=== PATIENT | female | born 1930 | race Caucasian/White ===

== ENCOUNTER → 2017-07-14 | Outpatient (REF) ==
[~2017-07-14] MED LIST: ASPIRIN 81M81 MG/TA2 PO; ATOXIMETIN-B1 CAP PO; CALCIUM CITRAT200 MG PO; CARDI-OMEGA1000 MG PO; FLAX SEED OIL1000 MG PO; HYDROCODONE/APAP; NATURAL E400 IU PO; PRILOSEC 20MG20 MG PO; VITAMIN D5000 IU PO
== END ==
LOC: ZLAB.WCH 18:26
DX: Z01.89 Encounter for other specified special examinations (principal)

== ENCOUNTER → 2017-11-01 | Outpatient (REF) ==
[2017-11-01 19:18] LABS: THYROID STIMULATING HORMONE 1.28 uIU/mL (0.465-4.680)
== END ==
LOC: ZLAB.WCH 18:22
PROVIDERS: Nurse Practitioner Family
DX: Z01.89 Encounter for other specified special examinations (principal)

== ENCOUNTER 2017-11-09 11:11 | Emergency (ER) | payer MEDICARE, OTHER ==
[~2017-11-09] VITALS: Ht 157.5 cm; Wt 80.5 kg
[2017-11-09 11:23] VITALS: TEMP 97.5
[2017-11-09 12:01] LABS: BASO # 0.1 (0.0-0.2); BASO % 1.4 % (0.0-2.0); EOS # 0.1 (0.0-0.7); EOS % 1.9 % (0-4.0); GRAN # 4.2 (1.4-6.5); GRAN % 56.1 % (42.2-75.2); HEMATOCRIT 40.6 % (37.0-47.0); HEMOGLOBIN 13.7 g/dl (12.5-16.0); LYMPH # 2.2 (1.2-3.4); LYMPH % 30.4 % (20.0-51.0); MEAN CELL VOLUME 93 fl (80.0-100.0); MEAN CORPUSCULAR HEMOGLOBIN 31 pg (27.0-31.0); MEAN CORPUSCULAR HGB CONC 34 g/dl (33.0-37.0); MEAN PLATELET VOLUME 9.4 fl (7.4-10.4); MONO # 0.7 (0.1-0.6); MONO % 9.9 % (1.7-9.3); PLATELET COUNT 321 K/mm3 (130-400); RED BLOOD COUNT 4.36 M/mm3 (4.10-5.30)
[2017-11-09 12:11] LABS: ALBUMIN 4.1 gm/dL (3.5-5.0); BILIRUBIN,TOTAL 0.7 mg/dL (0.0-1.0); CALCIUM 9.5 mg/dL (8.4-10.2); CREATININE, serum 0.58 mg/dL (0.52-1.25); TOTAL PROTEIN 7.1 gm/dL (6.4-8.2)
[2017-11-09 15:28] LABS: COLLECTION METHOD CLEAN CATCH
[2017-11-09 15:40] LABS: PH 8 (5-8); SQUAMOUS EPITHELIAL 0-2 /hpf; URINE APPEARANCE Clear; URINE BACTERIA None Seen /hpf; URINE BILIRUBIN Negative (NEGATIVE); URINE BLOOD Negative (NEGATIVE); URINE COLOR Straw; URINE GLUCOSE Negative (NEGATIVE); URINE KETONE Negative (NEGATIVE); URINE LEUKOCYTE ESTERASE 1+ (NEGATIVE); URINE NITRATE Negative (NEGATIVE); URINE PROTEIN(semi-quant) Negative (NEGATIVE); URINE RBC 0-2 /hpf; URINE UROBILINOGEN Negative (NEGATIVE)
[2017-11-09 16:26] VITALS: BP 165/88; PULSE 71
[2017-11-09] MEDS ORDERED: DIFLUCAN 100MG100 MG PO (16:45)
== END 2017-11-09 16:45 | disposition home or self-care (01) ==
LOC: COL.ER 11:11
PROVIDERS: Emergency Medicine
DX: I70.212 Atherosclerosis of native arteries of extremities with intermittent claudication, left leg (principal)

== ENCOUNTER 2017-11-16 08:41 | Observation (INO) | payer MEDICARE, OTHER ==
[2017-11-16] VITALS (18 sets, daily range): BP systolic 118–179; BP diastolic 60–90; PULSE 59–77; TEMP 97.9
[~2017-11-16] VITALS: Ht 157.6 cm; Wt 78.0 kg
[~2017-11-16 08:41] MED LIST changes: -ATOXIMETIN-B1 CAP PO; -CALCIUM CITRAT200 MG PO; +CITRACAL + D CA1 TAB PO; +DIFLUCAN 100MG100 MG PO; +FLAX OIL1000 MG PO; -FLAX SEED OIL1000 MG PO; +MULTI VITAMINS1 TAB PO; -VITAMIN D5000 IU PO; +VITAMIND3 5000 PO
[2017-11-16 09:31] LABS: HEMATOCRIT 42.2 % (37.0-47.0); HEMOGLOBIN 14.6 g/dl (12.5-16.0); MEAN CELL VOLUME 93 fl (80.0-100.0); MEAN CORPUSCULAR HEMOGLOBIN 32 pg (27.0-31.0); MEAN CORPUSCULAR HGB CONC 35 g/dl (33.0-37.0); MEAN PLATELET VOLUME 9.5 fl (7.4-10.4); PLATELET COUNT 307 K/mm3 (130-400); RED BLOOD COUNT 4.55 M/mm3 (4.10-5.30); REDCELL DISTRIBUTION WIDTH-CV 12.1 % (11.5-14.5)
[2017-11-16 09:34] LABS: PROTHROMBIN TIME 11.2 SECONDS (9.7-12.8)
[2017-11-16 09:49] LABS: CREATININE, serum 0.63 mg/dL (0.52-1.25)
[2017-11-17 01:04] VITALS: BP 138/53; PULSE 67; TEMP 98.2
[2017-11-17 04:09] VITALS: BP 136/59; PULSE 71; TEMP 98.4
[2017-11-17 04:09] LABS: COLLECTION METHOD CLEAN CATCH
[2017-11-17 04:18] LABS: MUCOUS Present /lpf; PH 6 (5-8); URINE APPEARANCE Clear; URINE BACTERIA Occasional /hpf; URINE BILIRUBIN Negative (NEGATIVE); URINE BLOOD Negative (NEGATIVE); URINE COLOR Yellow; URINE GLUCOSE Negative (NEGATIVE); URINE KETONE Trace (NEGATIVE); URINE LEUKOCYTE ESTERASE 2+ (NEGATIVE); URINE NITRATE Negative (NEGATIVE); URINE PROTEIN(semi-quant) Negative (NEGATIVE); URINE UROBILINOGEN Negative (NEGATIVE)
[2017-11-17 08:01] VITALS: BP 146/62; PULSE 56; TEMP 97.8
[2017-11-17 08:32] LABS: BASO # 0.1 (0.0-0.2); BASO % 0.6 % (0.0-2.0); EOS # 0.1 (0.0-0.7); EOS % 0.8 % (0-4.0); GRAN % 66.4 % (42.2-75.2); HEMATOCRIT 38.9 % (37.0-47.0); HEMOGLOBIN 12.9 g/dl (12.5-16.0); LYMPH # 1.8 (1.2-3.4); LYMPH % 19.8 % (20.0-51.0); MEAN CELL VOLUME 95 fl (80.0-100.0); MEAN CORPUSCULAR HEMOGLOBIN 31 pg (27.0-31.0); MEAN CORPUSCULAR HGB CONC 33 g/dl (33.0-37.0); MEAN PLATELET VOLUME 9.4 fl (7.4-10.4); MONO # 1.1 (0.1-0.6); MONO % 12.1 % (1.7-9.3); PLATELET COUNT 268 K/mm3 (130-400); RED BLOOD COUNT 4.11 M/mm3 (4.10-5.30); REDCELL DISTRIBUTION WIDTH-CV 12.1 % (11.5-14.5)
[2017-11-17 08:42] VITALS: BP 146/62; PULSE 56; TEMP 97.8
[2017-11-17 08:43] LABS: CALCIUM 8.3 mg/dL (8.4-10.2); CREATININE, serum 0.75 mg/dL (0.52-1.25); MAGNESIUM 1.8 mg/dL (1.6-2.3); PHOSPHOROUS 3.1 mg/dL (2.5-4.5); POTASSIUM 4.1 mmol/L (3.4-5.0)
[2017-11-17] MEDS ORDERED: PLAVIX 75MG TAB75 MG PO (09:03)
[2017-11-18] MEDS ORDERED: CEPHALEXIN500 M1 PO (16:59)
== END 2017-11-17 11:52 | disposition home or self-care (01) ==
LOC: COL.CAR 08:41 → MEDICAL 18:40 → COL.CAR 11-17 03:08 → MEDICAL 11-17 03:09
PROVIDERS: Internal Medicine; Radiology Diagnostic Radiology
DX: I77.1 Stricture of artery (principal); I70.92 Chronic total occlusion of artery of the extremities; I10 Essential (primary) hypertension; Z87.891 Personal history of nicotine dependence; Z79.82 Long term (current) use of aspirin
CPT/HCPCS: OP; G0378; J1644; J2250; J2405; J2704; J2997; J3010; J7030; J7120; Q9967

== ENCOUNTER 2017-11-18 14:28 | Emergency (ER) | payer MEDICARE, OTHER ==
[~2017-11-18] VITALS: Ht 157.5 cm; Wt 79.5 kg
[~2017-11-18 14:28] MED LIST changes: +PLAVIX 75MG TAB75 MG PO
[2017-11-18 14:35] VITALS: TEMP 98.1
[2017-11-18 16:21] LABS: BASO # 0.1 (0.0-0.2); BASO % 0.8 % (0.0-2.0); EOS # 0.2 (0.0-0.7); EOS % 2.4 % (0-4.0); GRAN # 4.8 (1.4-6.5); GRAN % 53.5 % (42.2-75.2); HEMATOCRIT 38.2 % (37.0-47.0); HEMOGLOBIN 12.9 g/dl (12.5-16.0); LYMPH # 2.5 (1.2-3.4); LYMPH % 28.1 % (20.0-51.0); MEAN CELL VOLUME 93 fl (80.0-100.0); MEAN CORPUSCULAR HEMOGLOBIN 32 pg (27.0-31.0); MEAN CORPUSCULAR HGB CONC 34 g/dl (33.0-37.0); MEAN PLATELET VOLUME 9.5 fl (7.4-10.4); MONO # 1.3 (0.1-0.6); PLATELET COUNT 226 K/mm3 (130-400); RED BLOOD COUNT 4.09 M/mm3 (4.10-5.30)
[2017-11-18 16:46] LABS: CALCIUM 9.2 mg/dL (8.4-10.2); CREATININE, serum 0.72 mg/dL (0.52-1.25); POTASSIUM 3.8 mmol/L (3.4-5.0)
[2017-11-18] MEDS ORDERED: CEPHALEXIN500 M1 PO (16:59)
[2017-11-18 17:05] VITALS: BP 175/82; PULSE 67
== END 2017-11-18 17:20 | disposition home or self-care (01) ==
LOC: COL.ER 14:28
PROVIDERS: Emergency Medicine
DX: L03.116 Cellulitis of left lower limb (principal); I73.9 Peripheral vascular disease, unspecified; Z95.820 Peripheral vascular angioplasty status with implants and grafts; Z79.82 Long term (current) use of aspirin; Z79.02 Long term (current) use of antithrombotics/antiplatelets

== ENCOUNTER → 2017-12-01 | Outpatient (CLI) | payer MEDICARE, OTHER ==
[~2017-12-01] MED LIST changes: +CEPHALEXIN500 M1 PO
== END ==
LOC: COL.VAS 09:13
DX: I37.1 Nonrheumatic pulmonary valve insufficiency (principal); R06.02 Shortness of breath

== ENCOUNTER → 2018-02-13 | Outpatient (CLI) | payer MEDICARE, OTHER | LOC: COL.VAS 12:07 | DX: I08.1 Rheumatic disorders of both mitral and tricuspid valves (principal) ==

== ENCOUNTER → 2018-03-03 | Outpatient (REF) | LOC: ZLAB.WCH 16:42 | DX: Z01.89 Encounter for other specified special examinations (principal) ==

== ENCOUNTER → 2018-03-10 | Outpatient (CLI) | payer MEDICARE, OTHER | LOC: COL.PUL 10:29 | DX: J43.1 Panlobular emphysema (principal); Z87.891 Personal history of nicotine dependence ==

== ENCOUNTER → 2018-05-18 | Outpatient (REF) ==
[~2018-05-18] MED LIST changes: +BETAPACE 80MG80 MG PO; +ELIQUIS 5MG PO; +TOPROL XL 25MG25 MG PO
== END ==
LOC: ZLAB.WCH 14:33
DX: Z01.89 Encounter for other specified special examinations (principal)

== ENCOUNTER → 2018-10-03 | Outpatient (CLI) | payer MEDICARE, OTHER | LOC: COL.VAS 10:48 | DX: I73.9 Peripheral vascular disease, unspecified (principal); I48.2 Chronic atrial fibrillation; Z95.820 Peripheral vascular angioplasty status with implants and grafts ==

== ENCOUNTER 2019-05-30 11:09 | Observation (INO) | payer MEDICARE, OTHER ==
[~2019-05-30] VITALS: Ht 157.5 cm; Wt 79.2 kg
[2019-05-30 11:32] LABS: BASO # 0.1 (0.0-0.2); BASO % 0.8 % (0.0-2.0); EOS # 0.2 (0.0-0.7); EOS % 2.1 % (0-4.0); GRAN # 4.1 (1.4-6.5); GRAN % 49.5 % (42.2-75.2); HEMOGLOBIN 13.6 g/dl (12.5-16.0); LYMPH # 2.8 (1.2-3.4); LYMPH % 33.3 % (20.0-51.0); MEAN CELL VOLUME 91 fl (80.0-100.0); MEAN CORPUSCULAR HEMOGLOBIN 30 pg (27.0-31.0); MEAN CORPUSCULAR HGB CONC 33 g/dl (33.0-37.0); MEAN PLATELET VOLUME 9.5 fl (7.4-10.4); MONO # 1.2 (0.1-0.6); MONO % 14.1 % (1.7-9.3); PLATELET COUNT 378 K/mm3 (130-400); RED BLOOD COUNT 4.52 M/mm3 (4.10-5.30); REDCELL DISTRIBUTION WIDTH-CV 13.2 % (11.5-14.5)
[2019-05-30 11:36] LABS: INR 1.3 (0.8-3.0); PROTHROMBIN TIME 15.3 SECONDS (9.7-12.8)
[2019-05-30 11:45] LABS: ALANINE AMINOTRANSFERASE < 6 U/L (9-52); ALKALINE PHOSPHATASE 59 U/L (50-136); ANION GAP 12 mmol/L (7-16); AST,SGOT 20 U/L (15-37); BILIRUBIN,TOTAL 0.6 mg/dL (0.0-1.0); BLOOD UREA NITROGEN 13 mg/dL (7-17); CALCIUM 9.5 mg/dL (8.4-10.2); CARBON DIOXIDE 24 mmol/L (22-30); CHLORIDE 103 mmol/L (98-107); CREATININE, serum 0.57 (0.52-1.25); GLUCOSE 98 mg/dL (74-106); LIPASE 113 U/L (23-300); POTASSIUM 4.2 mmol/L (3.4-5.0); SODIUM 140 mmol/L (137-145); TOTAL PROTEIN 7.3 gm/dL (6.4-8.2)
[2019-05-30 11:57] LABS: TROPONIN-I < 0.012 ng/mL (0.000-0.035)
[2019-05-30 15:08] VITALS: BP 139/101; PULSE 87; TEMP 96.8
[2019-05-30 16:26] LABS: MAGNESIUM 1.6 mg/dL (1.6-2.3)
[2019-05-30 16:41] LABS: TROPONIN-I < 0.012 ng/mL (0.000-0.035)
[2019-05-30 16:58] LABS: TSH w REFLEX 0.759 uIU/mL (0.465-4.680)
[2019-05-30 17:03] VITALS: BP 156/95; PULSE 98; TEMP 97.7
--- NOTE | 2019-05-30 18:02 | NUR ---
Pt up to room 346. Hospitalist visited with patient. Admission, med rec and allergies completed. Pt currently denies chest pain, dizziness, N/V. On 2 L NC, c/o some SOB when getting up and moving around. Pt assisted to bathroom, was SBA, took her time getting up. Tlel placed on patient per orders. Pt to be NPO after midnight. Lt hand IV patent, no fluids running. POC discussed with patient. Cardio consulted. No other needs or concerns at this time.
--- NOTE | 2019-05-30 19:09 | NUR ---
Report received from Dariela RN. Patient had Q1H vital signs ordered. Dariela attempted to contact Dr. Gilmore regarding possible change to Q4H. Spoke with tony Sanchez to change to Q4H, and call if systolic above 170.
--- NOTE | 2019-05-30 19:56 | NUR ---
Resting in bed. Assessment complete. Lungs clear. Heart sounds normal. Bowels active x4. Pusles strong throughout. No edema noted. INT left wrist flushed without complications. Denies pain. Denies shortness of breath. Denies needs at this time. Call light in reach.
[2019-05-30 20:30] VITALS: BP 123/69; PULSE 65; TEMP 98.2
[2019-05-31] VITALS (7 sets, daily range): BP systolic 102–135; BP diastolic 46–68; PULSE 56–67; TEMP 97.5–98.7
--- NOTE | 2019-05-31 00:30 | NUR ---
Requested "something to help sleep." No medications on MAR. Offer to contact physician, patient stated no. Offered warm blanket. Patient states "I will be okay, thank you." Will continue to monitor.
--- NOTE | 2019-05-31 04:07 | NUR ---
Patient 87% on room air while resting. Placed on 1 liter, up to 90%. Increased to 2 liters, up to 96%. Respiratory notified.
--- NOTE | 2019-05-31 05:32 | NUR ---
Telemetry called stating patient pulse dropped to 42. Current 52 on telemetry. Will closely monitor.
--- NOTE | 2019-05-31 05:37 | NUR ---
Patient oxygen saturation dropped to 87%, was placed on 2 liters via nasal cannula which improved saturation to 96%. Patient had difficulty resting earlier in evening. Was able to sleep without intervention. Has remained NPO as ordered. Otherwise uneventful night. Resting in bed this AM. Call light in reach.
--- NOTE | 2019-05-31 07:04 | NUR ---
Report given to VICTOR M Ferrari
[2019-05-31 07:19] LABS: CHOLESTEROL 193 mg/dL (120-200); HDL CHOLESTEROL 38 mg/dL; LDL CHOLESTEROL 141 mg/dL; TRIGLYCERIDE 71 mg/dL
[2019-05-31 07:31] LABS: TROPONIN-I < 0.012 ng/mL (0.000-0.035)
--- NOTE | 2019-05-31 08:00 | NUR ---
PATIENT IS RESTING IN BED THIS MORNING. PATIENT IS A&OX4. BRADYCARDIA NOTED, OTHERWISE VSS. TELE IN PLACE. BOWEL SOUNDS ACTIVE ALL FOUR QUADRANTS. PATIENT IS NPO FOR PROCEDURE. PATIENT DENIES COMPLAINTS OF N/V. POSITIVE PEDAL PULSES EQUAL BILATERALLY. LEFT WRIST TO INT. CALL LIGHT WITHIN REACH. PATIENT DENIES ANY NEEDS AT THIS TIME.
[2019-05-31 08:46] LABS: CALCIUM 8.5 mg/dL (8.4-10.2); CREATININE, serum 0.53 (0.52-1.25); MAGNESIUM 1.8 mg/dL (1.6-2.3); POTASSIUM 3.7 mmol/L (3.4-5.0)
--- NOTE | 2019-05-31 11:32 | NUR ---
First visit from the data analytics specialist. No needs right now.
--- NOTE | 2019-05-31 19:25 | NUR ---
REPORT GIVEN TO VICTOR M DASILVA.
--- NOTE | 2019-05-31 20:45 | NUR ---
PT RESTING IN BED A+OX4. REPORTS NO PAIN. NO SOA. TELE ON. 2L VIA NC. PEDAL AND RADIAL PULSES PALPATED. IV FLUSHES WELL, NO SWELLING NO REDNESS. NO NEEDS AT THIS TIME. CALL LIGHT IN REACH
--- NOTE | 2019-06-01 02:00 | NUR ---
BRADYCARIDA NOTEDB HR 41-50s. DR REID NOTIFIED- NO ORDERS AT THIS TIME. TELE ON. 2L VIA [place]. NO S/S OF BRADYCARDIA. BOWEL SOUNDS AUDIBLE THROUGHOUT. LUNGS CLEAR X4. NO NEEDS AT THIS TIME. CALL LIGHT IN REACH
[2019-06-01 03:47] VITALS: BP 111/51; PULSE 49; TEMP 98.3
--- NOTE | 2019-06-01 06:01 | NUR ---
PT HAD AN UNEVENTFUL NIGHT. SLEPT THROUGHTOU NIGHT. REPORTED NO PAIN NO SOA. 2L VIA NC- SAT STABLE. BRADYCARDIA NOTED, DR SHAH NOTIFIED. IV FLUSHES WELL, NO REDNESS, NO SWELLING. NO NEED AT THIS TIME. CALL LIGHT IN REACH
[2019-06-01 06:56] LABS: BASO # 0.1 (0.0-0.2); BASO % 0.8 % (0.0-2.0); EOS # 0.1 (0.0-0.7); EOS % 1.8 % (0-4.0); GRAN # 3.6 (1.4-6.5); GRAN % 46.4 % (42.2-75.2); LYMPH % 38.1 % (20.0-51.0); MEAN CELL VOLUME 94 fl (80.0-100.0); MEAN CORPUSCULAR HGB CONC 32 g/dl (33.0-37.0); MONO % 12.6 % (1.7-9.3); PLATELET COUNT 294 K/mm3 (130-400); RED BLOOD COUNT 3.45 M/mm3 (4.10-5.30); REDCELL DISTRIBUTION WIDTH-CV 13.9 % (11.5-14.5)
[2019-06-01 07:00] LABS: HEMOGLOBIN 10.4 g/dl (12.5-16.0); MEAN CORPUSCULAR HEMOGLOBIN 30 pg (27.0-31.0)
[2019-06-01 07:01] LABS: HEMATOCRIT 32.4 % (37.0-47.0)
--- NOTE | 2019-06-01 07:09 | NUR ---
REPORT GIVEN TO VICTOR M FAIR
[2019-06-01 07:19] LABS: CALCIUM 8.4 mg/dL (8.4-10.2); CREATININE, serum 0.64 (0.52-1.25); POTASSIUM 3.9 mmol/L (3.4-5.0)
--- NOTE | 2019-06-01 08:00 | NUR ---
PATIENT SITTING UP IN BED THIS MORNING WITH FAMILY PRESENT AT THE BEDSIDE. PATIENT IS A&OX4. BRADYCARDIA NOTED, OTHERWISE VSS. TELE IN PLACE. BOWEL SOUNDS ACTIVE ALL FOUR QUADRANTS. PATIENT TOLERATING DIET WITHOUT ANY COMPLAINTS OF N/V. PATIENT DENIES SHORTNESS OF BREATH OR PAIN. LEFT WRIST TO INT. CALL LIGHT WITHIN REACH. NO OTHER NEEDS AT THIS TIME.
[2019-06-01 08:08] VITALS: BP 126/56; PULSE 49; TEMP 98.2
[2019-06-01] MEDS ORDERED: MAG-OX 400400 MG/TAB PO (10:15)
[2019-06-01 11:43] VITALS: BP 124/62; PULSE 52; TEMP 97.6
[2019-06-01] MEDS ORDERED: PROAIR HFA0.09 MG/AC IH (14:47)
[2019-06-01 15:36] VITALS: BP 124/54; PULSE 54; TEMP 97.7
--- NOTE | 2019-06-01 15:50 | NUR ---
PATIENT'S LEFT WRIST INT DISCONTINUED PER PENDING DISCHARGE. TIP INTACT. PATIENT TOLERATED WELL.
--- NOTE | 2019-06-01 17:35 | NUR ---
DISCHARGE INSTRUCTIONS REVIEWED WITH PATIENT AND FAMILY. ALL QUESTIONS ANSWERED. PATIENT PERSONAL BELONGINGS GATHERED. PATIENT TAKEN TO PERSONAL VEHICLE VIA WHEELCHAIR BY SURGICAL STAFF. PATIENT DISCHARGED.
== END 2019-06-01 17:35 | disposition home or self-care (01) ==
LOC: COL.ER 11:09 → SURG 14:00
PROVIDERS: Emergency Medicine; Nurse Practitioner Family; Physician Assistant; ADMIT Hospitalist
DX: I48.0 Paroxysmal atrial fibrillation (principal); Z79.01 Long term (current) use of anticoagulants; Z79.899 Other long term (current) drug therapy; Z79.82 Long term (current) use of aspirin; I73.9 Peripheral vascular disease, unspecified; Z95.9 Presence of cardiac and vascular implant and graft, unspecified; M19.90 Unspecified osteoarthritis, unspecified site; Z87.891 Personal history of nicotine dependence; Z82.49 Family history of ischemic heart disease and other diseases of the circulatory system; I34.0 Nonrheumatic mitral (valve) insufficiency; R06.02 Shortness of breath; R07.89 Other chest pain; R00.1 Bradycardia, unspecified; Z85.820 Personal history of malignant melanoma of skin
CPT/HCPCS: G0378; J2930; J7030; Q9967